=== PATIENT | female | born 1965 | race African-American/Black ===

== ENCOUNTER 2017-03-13 19:20 | Emergency (ER) | payer OTHER ==
[~2017-03-13] VITALS: Ht 165.1 cm; Wt 91.7 kg
[~2017-03-13 19:20] MED LIST: ATENOLOL100 M1 PO; NORVASC10 MG PO; [UNRECOGNIZED DRUG - OTHER]
[2017-03-13] MEDS ORDERED: FLEXERIL10 MG PO (21:02)
[2017-03-13] MEDS ORDERED: LIDODERM 5% P1 PATCH TD (21:02)
[2017-03-13] MEDS ORDERED: ULTRAM50 MG PO (21:02)
[2017-03-13 21:55] VITALS: BP 131/98
== END 2017-03-13 21:56 | disposition home or self-care (01) ==
LOC: EME 19:20
DX: S29.012A Strain of muscle and tendon of back wall of thorax, initial encounter (principal); X58.XXXA Exposure to other specified factors, initial encounter; I10 Essential (primary) hypertension
CPT/HCPCS: 72070; 99281; 99284